=== PATIENT | male | born 1935 | race Caucasian/White ===

== ENCOUNTER 2017-01-26 09:54 | Inpatient (IN) | payer MEDICARE, OTHER ==
[~2017-01-26] VITALS: Ht 182.9 cm; Wt 84.1 kg
--- NOTE | ~2017-01-26 | CON ---
PATIENT'S NAME: SIRISHA GUZMAN [facility] AGE: 81 Y [address] ROOM: [address] [address] LOCATION: [facility] ADMIT DATE: 01/26/2017 Consultation DISCHARGE DATE: FAMILY PHYSICIAN: Nav Gonzalez PA-C ATTENDING PHYSICIAN: Rudi Quiles CHIEF COMPLAINT: Right-sided weakness secondary to CVA. HISTORY OF PRESENT ILLNESS: This is a 81-year-old male who is being admitted to [facility] for rehabilitation after undergoing a left carotid endarterectomy on 01/12/2017. 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 The patient is in rehabilitation right now to increase the strength. The patient denies any symptoms except that he has been having three loose stools yesterday and one loose stool today. Otherwise, he denies any other complaints. REVIEW OF SYSTEMS: As mentioned in history of present illness. All other systems were reviewed and they were negative except those mentioned in history of present illness. PAST MEDICAL HISTORY: 1. Obstructive sleep apnea, not on home CPAP due to noncompliance. 2. Hypertension. 3. Coronary artery disease, status post CABG in the past. 4. Diabetes, type 2. 5. Hyperlipidemia. ALLERGIES: CYMBALTA AND KEFLEX. HOME MEDICATIONS: 1. Lovenox 40 mg subcutaneous daily. 2. Augmentin 1 tablet twice a day. 3. Tylenol 650 mg p.o. every 4 hours p.r.n. for pain or fever. 4. Vitamin C 1000 mg p.o. daily. 5. Aspirin 81 mg p.o. daily. 6. Lipitor 40 mg p.o. daily. 7. Dulcolax 10 mg per rectum daily. 8. Plavix 75 mg p.o. daily. 9. Dantrolene 25 mg p.o. daily. 10. Colace 100 mg p.o. b.i.d. 11. Gemfibrozil 600 mg p.o. b.i.d. 12. Insulin NovoLog 7 units subcutaneous 4 times daily. 13. Insulin Lantus 20 units subcutaneous every evening at 6:00 p.m. PATIENT'S NAME: SIRISHA GUZMAN [facility] AGE: 81 Y [address] ROOM: [id number] [place], [place] [address] LOCATION: [facility] ADMIT DATE: 01/26/2017 Consultation DISCHARGE DATE: FAMILY PHYSICIAN: Nav Gonzalez PA-C ATTENDING PHYSICIAN: Rudi Quiles 14. Lisinopril 5 mg p.o. daily. 15. Milk of magnesia 30 mL p.o. daily p.r.n. for constipation. 16. Toprol-XL 50 mg p.o. daily. 17. Nitroglycerin 0.4 mg sublingual every 5 minutes p.r.n. for chest pain. 18. Fish oil 1000 mg p.o. daily. 19. Omeprazole 20 mg p.o. daily. 20. MiraLAX 17 g p.o. daily p.r.n. for constipation. 21. Terazosin 2 mg p.o. daily. 22. Tramadol 50 mg p.o. b.i.d. p.r.n. for pain. SOCIAL HISTORY: The patient was a former cigar smoker. He quit about 5 years ago. He used to smoke about 3 to 4 cigars per day for the last 50 years. He is a social alcohol drinker about 1 to 2 drinks per week. He denies any illegal drug use. FAMILY HISTORY: Father from complication from COPD. Mother from some cancer, but he does not remember which type. PAST SURGICAL HISTORY: 1. CABG. 2. Prior abdominal surgery, details are not clear. 3. Status post left carotid endarterectomy. PHYSICAL EXAMINATION: VITAL SIGNS: At the time of evaluation, temperature is 97.8, heart rate is 74, respirations are 14, blood pressure is 133/70, and saturation is 96% on room air. GENERAL APPEARANCE: Alert and oriented x3, in no acute distress. HEENT: Pupils equally round and reactive to light. Extraocular muscles intact. Anicteric sclerae. Nasal turbinates are normal bilaterally. Moist oral mucosa. NECK: No JVD. CARDIOVASCULAR: Regular rate and rhythm. Normal S1 and S2. No murmurs, no rubs, no gallops. RESPIRATORY: Clear to auscultation. No rales. No rhonchi. No wheezing. No crackles. ABDOMEN: Soft, nontender, nondistended, bowel sounds present, and no mass. EXTREMITIES: No edema in upper or lower extremities. NEUROLOGIC: Muscle weakness about 4/5 in the right lower extremity and about 3/5 in the right upper extremity. Sensations are decreased in bilateral lower extremities due to peripheral neuropathy from diabetes. Otherwise, unremarkable. PATIENT'S NAME: SIRISHA GUZMAN [facility] AGE: 81 Y [address] ROOM: [address] [address] LOCATION: [facility] ADMIT DATE: 01/26/2017 Consultation DISCHARGE DATE: FAMILY PHYSICIAN: Nav Gonzalez PA-C ATTENDING PHYSICIAN: Rudi Quiles SKIN: No ulcer, no rash, no cyanosis. IMAGING STUDIES: None in GIP. ASSESSMENT AND PLAN: 1. Regarding his obstructive sleep apnea: The patient refused CPAP due to discomfort. We will use oxygen nasal cannula if necessary at night during sleep to keep the saturation more than 94%. 2. Hypertension: Continue home medications, currently, under very good control. Currently, the patient is on Toprol-XL and lisinopril. 3. Regarding his coronary artery disease status post coronary artery bypass graft in the past. No active issue. Continue aspirin and Lipitor and Toprol-XL. 4. Regarding his diabetes, type 2: Continue current treatments with Levemir 20 units every evening and sliding scale with moderate a.c. and at bedtime. Titrate as needed. 5. Regarding his hyperlipidemia: Continue Lipitor. 6. Regarding his right-sided weakness secondary to stroke status post left carotid endarterectomy: Deferred to rehabilitation physician, Dr. Quiles. 7. Regarding his deep vein thrombosis prophylaxis: He is on Lovenox subcutaneous daily. Time spent in care on the day of consultation 35 minutes where 10 minutes were spent on chart review, and the remainder of the time was spent on interview and physical examination and in counseling. Counseling includes going over the plan of care and addressing all the questions and concerns that the patient had to his satisfaction. Further plan will depend on clinical course. PARIS TRAVIS MD CC/modl /[id number] d: 01/28/17 0001 t: 02/10/172025, CONSULTATION REPORT
--- NOTE | ~2017-01-26 | HP ---
PATIENT'S NAME: SIRISHA GUZMAN [facility] AGE: 81 Y [address] ROOM: [place] [address] LOCATION: [facility] ADMIT DATE: 01/26/2017 History & Physical DISCHARGE DATE: FAMILY PHYSICIAN: Nav Gonzalez PA-C ATTENDING PHYSICIAN: Rudi Quiles DATE OF SERVICE: HISTORY OF PRESENT ILLNESS: This 81-year-old gentleman is admitted for continuous medical treatment and intensive rehabilitation status post left carotid endarterectomy on 01/12/2017 with right-sided weakness secondary to embolic stroke with unstable gait, dependent with activities of daily living and self-care and at risk of falling. He is at the present time with right hemiplegia, hemiparesis, and status post left carotid stenting with left-sided neglect and at risk of falling. His code status is full. He was on admission with the following vitals. Alert and oriented x3, can speak, comprehend, express without difficulty, has no difficulty saturating at room air. Vitals were as follows: Blood pressure 126/51, temperature 98.1, pulse 73, respirations 16. He is 6 feet tall and weighs 82.4 kg. ALLERGIES: NO KNOWN ALLERGIES TO MEDICATIONS. MEDICATIONS: He is at the present time on the following medications, 1. Hytrin 2 mg capsules p.o. at bedtime. 2. Lopid 600 mg one tablet p.o. b.i.d. 3. Colace 100 mg p.o. b.i.d. 4. Lipitor 40 mg p.o. at bedtime. 5. Aspirin chewable 81 mg p.o. daily at bedtime. 6. Insulin detemir 20 units subcu at 1800 hours. 7. Insulin aspartate human moderate scale per protocol. 8. Acetaminophen or Tylenol 650 q.6 hours, do not exceed acetaminophen 4 g q.24 hours. 9. [place]-3 fatty acids/fish oil 1000 mg capsule p.o. daily. 10. Metoprolol 50 mg p.o. daily. 11. Lisinopril 5 mg p.o. daily. PATIENT'S NAME: SRIISHA GUZMAN [facility] AGE: 81 Y [address] ROOM: [place] [address] LOCATION: [facility] ADMIT DATE: 01/26/2017 History & Physical DISCHARGE DATE: FAMILY PHYSICIAN: Nav Gonzalez PA-C ATTENDING PHYSICIAN: Rudi Quiles 12. Dantrium 25 mg p.o. daily. 13. Plavix 75 mg p.o. daily. 14. Ascorbic acid 1000 mg two tablets p.o. daily. 15. Lovenox 40 mg subcu daily. 16. Protonix 20 mg p.o. daily. 17. Glucagon 1 mg subcu p.r.n. 18. Dextrose 50%, 25 mL as needed IV. 19. Glucose 16 g p.o. as needed for hypoglycemia. 20. MiraLAX 17 g p.o. daily as needed. 21. Nitroglycerin 0.4 mg sublingual p.r.n. 22. MOM 30 mL p.o. as needed. 23. Dulcolax suppository 10 mg rectally p.r.n. 24. Augmentin 875 mg b.i.d was started on 01/26/2017. PAST MEDICAL HISTORY: Past history of significance as follows, 1. History of angioplasty for the left lower extremity on 01/12. 2. Sleep apnea. 3. Hypertension. 4. Status post CABG x3. 5. Chronic kidney disease, grade 3. 6. Hernia repair. 7. Diabetes type 2. 8. Dyslipidemia. 9. Anemia of chronic disease. 10. Status post cardiac stenting. 11. Arthritis. RECOMMENDATIONS AND PLAN: 1. At the present time, we will put on intensive PT, OT, and speech 3 hours per day, 15 hours per week for the coming 2 to 3 weeks aiming to discharge on modified independent. He will be on cardiac prudent and ADA diet 1800 calories. We will send for UA, CBC, and CMS, and prealbumin plus hemoglobin A1c and will keep on before meal and at bedtime Accu- Cheks. 2. We will have him be followed by hospitalist on a regular basis and upon discharge, he will be discharged to home with recommendations. All the above was explained to him in detail. He verbalized understanding and agreement with plan of care. RUDI QUILES MD PATIENT'S NAME: SRIISHA GUZMAN [facility] AGE: 81 Y [address] ROOM: [place] [address] LOCATION: [facility] ADMIT DATE: 01/26/2017 History & Physical DISCHARGE DATE: FAMILY PHYSICIAN: Nav Gonzalez PA-C ATTENDING PHYSICIAN: Rudi Quiles/maceyl /[id number] D: [id number] T: [id number] HISTORY & PHYSICAL
--- NOTE | ~2017-01-26 | DS ---
PATIENT'S NAME: SIRISHA GUZMAN [facility] AGE: 81 Y [address] ROOM: [address] [place], [place] [address] LOCATION: [facility] ADMIT DATE: 01/26/2017 Discharge Summary DISCHARGE DATE: FAMILY PHYSICIAN: Nav Gonzalez PA-C ATTENDING PHYSICIAN: Tonia Quiles HOSPITAL COURSE: This 81-year-old gentleman was admitted to rehab unit at [facility] on 01/26/2017, is discharged to home on 02/09/2017. He was admitted with unstable gait. Dependent activities of daily and self-care. Status post carotid artery stenting and embolized stroke leading to left side carotid artery stent, leading to right-sided hemiparesis with unstable gait, dependent activity of daily and self-care and some difficulty with his speech and memory. He is at the present time doing well, alert, and oriented x3. VITAL SIGNS: Blood pressure 146/66, temperature 97.7, pulse 67, and respirations 16. His Accu-Chek today at 20:36 p.m. was 186 ranging between 225 to 132. He has no pain, able to ambulate 400 feet plus with single-point cane and standby assistance. He is not to drive and/or operate any mechanical or electrical device until he is re-evaluated. He will continue on outpatient basis 2 to 3 times PT, OT, and Speech per week and for 4 weeks. I will re-evaluate. He should follow up with his family physician as soon as possible. I will follow on him in 4 weeks. He follows with his dining room maid as the dining room maid sees fit. MEDICATIONS: He is on the following medications: 1. Vitamin C 1000 mg p.o. daily. 2. Aspirin children chewable 81 mg p.o. daily. 3. Lipitor 40 mg at bedtime. 4. Plavix 75 mg p.o. daily. 5. Dantrium 25 mg p.o. daily. 6. Colace 100 mg p.o. b.i.d. PATIENT'S NAME: SIRISHA GUZMAN [facility] AGE: 81 Y [address] ROOM: [address] [place], [place] [address] LOCATION: [facility] ADMIT DATE: 01/26/2017 Discharge Summary DISCHARGE DATE: FAMILY PHYSICIAN: Nav Gonzalez PA-C ATTENDING PHYSICIAN: Tonia Quiles 7. Lipitor 600 mg p.o. twice daily. 8. Levemir 22 units at 1800 hours. 9. Lisinopril 5 mg p.o. daily. 10. Toprol-XL 50 mg p.o. daily. 11. Fish oil 1000 mg p.o. daily. 12. Protonix 20 mg p.o. daily. 13. Florastor 250 p.o. twice daily. 14. Hytrin 2 mg p.o. at bedtime. 15. Tylenol 650 q.6 hours, do not exceed acetaminophen 4 g every 24 hours, give 40 of them. 16. Dulcolax suppository 10 mg rectally p.r.n., give 10 of them. 17. Garlic one capsule daily for 30 days. 18. MOM 10 mL p.r.n. as needed. 19. Nitrostat 0.4 mg sublingually p.r.n., given for 30 days. 20. Ultram 50 mg p.o. twice daily, give 40 of them. FINAL DIAGNOSES: 1. Unstable gait. 2. Dependent activities of daily and self-care. 3. Left carotid endarterectomy, 01/12/2017, leading to embolic stroke, right- side weakness. 4. With unstable gait, dependent activities of daily living, and some difficulty with speech. 5. Diabetes, type 2. 6. Dyslipidemia. 7. Hypertension. 8. Status post angioplasty, left lower extremity, on 01/13/2016. 9. Status post CABG x3, status post stenting coronary artery disease. 10. Sleep apnea per history. 11. Chronic stage 3 kidney disease. 12. Status post hernia repair. 13. Osteoarthritis. 14. Benign prostatic hypertrophy. The patient is not to drive and/or operate any mechanical. His medication is given for 30 days. Any renewal of medication or adding or discontinuing any medication is through his family physician please. All the above was explained to him in detail. He verbalized understanding and agreement with plan of care. TONIA QUILES MD WMS/modl PATIENT'S NAME: SIRISHA GUZMAN [facility] AGE: 81 Y [address] ROOM: [address] [address] LOCATION: [facility] ADMIT DATE: 01/26/2017 Discharge Summary DISCHARGE DATE: FAMILY PHYSICIAN: Nva Gonzalez PA-C ATTENDING PHYSICIAN: Tonia Quiles /[id number] d: 02/08/17 1215 t: 02/09/17 0653, DISCHARGE SUMMARY
--- NOTE | ~2017-01-26 | CON ---
PATIENT'S NAME: SIRISHA GUZMAN [facility] AGE: 81 Y [address] ROOM: [address] [place], [place] [address] LOCATION: [facility] ADMIT DATE: 01/26/2017 Consultation DISCHARGE DATE: 02/09/2017 FAMILY PHYSICIAN: Nav Gonzalez PA-C ATTENDING PHYSICIAN: Rudi Prince DATE OF CONSULTATION: 02/06/2017 TEAM MEMBERS REPORTING: Include Dr. Prince; Mariia Hendricks. bottling room worker; Yessy Madrid RN; Danielle Vidal, PT; Ellie Mathews, PT; Paula Hicks, OT; Francoise Franklin, Speech Therapy; Saba Beauchamp, therapeutic rec. CURRENT STATUS: Abraham Joy is a 81-year-old man, admitted to our inpatient rehab unit following a CVA. The patient is on a consistent carbohydrate diet. Prealbumin is 25, not currently at nutritional risk. He can transfer sit to supine and supine to sit at mod I, sit to stand and stand to sit, mod I and bed to chair and chair to bed, mod I. He can walk 150 feet, 300 feet using a front-wheeled walker at mod I. If he walks with a single-point cane 150 feet, he is also mod I. He can climb 12 stairs at contact guard assistance using one railing. has to come in for training. He has met 3/9 long-term PT goals. The patient can dress his upper and lower body at standby; grooming, mod I, bathing standby; shower transfer, standby; and toileting, mod I. He has met 4/13 long-term OT goals and 4/4 short-term OT goals. Comprehension is at mod I; language and expression, mod I; memory standby to mod I and problem solving, standby. He can complete car transfers at contact guard assistance. DISCHARGE PLAN: The patient is receiving 3 hours of PT, OT, and speech Sunday through Sunday. The patient has daily rehab, nursing, and physiatry involvement as well as therapeutic recreational services. The patient has shown functional improvement and is progressing. Please see his plan of care for specific goals. Plan is for the patient to discharge on Thursday, February 09, 2017. The patient plans to return to home with his . MARIIA HENDRICKS FOR RUDI PRINCE MD TD/modl /[id number] d: 02/11/17 1817 t: 02/23/17 1139, CONSULTATION REPORT
--- NOTE | ~2017-01-26 | CON ---
PATIENT'S NAME: SIRISHA GUZMAN [facility] AGE: 81 Y [address] ROOM: [address] [place] [address] LOCATION: [facility] ADMIT DATE: 01/26/2017 Consultation DISCHARGE DATE: 02/09/2017 FAMILY PHYSICIAN: Nav Gonzalez PA-C ATTENDING PHYSICIAN: Rudi Prince DATE OF CONSULTATION: 01/30/2017 TEAM MEMBERS REPORTING: Include Dr. Prince; Mariia Hendricks, social media manager; Yessy Madrid, RN; Ellie Mathews, PT; Danielle Vidal, PT; Paula Hicks, OT; Francoise Franklin, Speech Therapy; Saba Beauchamp, Therapeutic Rec; and Sister Monique Rayo, Pastoral Care. CURRENT STATUS: Marciano Joy is a 81-year-old man, admitted to our inpatient rehab unit from [facility] following a CVA. The patient has a history of obstructive sleep apnea; hypertension; coronary artery disease, status post CABG in the past; diabetes type 2; and hyperlipidemia. The patient is continent of bowel and bladder. He can transfer sit to supine and supine to sit at standby; sit to stand, stand to sit, bed to chair, and chair to bed, contact guard assistance. He can walk 150 feet with a front-wheeled walker at contact guard assistance to minimal assistance. He can climb stairs going minimal assistance up, contact guard assistance coming down using two rails. His goals have been set for mod I. The patient can dress his upper body at standby; lower body, contact guard assistance; grooming, contact guard assistance; bathing, minimal assistance; toilet transfers, minimal assistance; toileting, contact guard assistance; shower transfers, contact guard assistance; and feeding, standby. The patient is exhibiting some memory issues. 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 His goals for OT have been set for standby to mod I. Comprehension is independent. Language and expression, mod I. Delay in responses. Memory and problem solving, minimal assistance, as he does lose his train of thought. No pharmacy or pastoral care concerns. DISCHARGE PLAN: The patient is receiving 3 hours of PT, OT, and speech Sunday through Sunday. The patient has daily rehab, nursing, and physiatry involvement as well as therapeutic recreational services. The patient has shown functional improvement and is progressing. Please see his plan of care for specific goals. Plan is for patient to discharge in approximately 2 to 3 weeks. Plan is for patient to return to home with his . PATIENT'S NAME: SIRISHA GUZMAN [facility] AGE: 81 Y [address] ROOM: [place] [address] LOCATION: [facility] ADMIT DATE: 01/26/2017 Consultation DISCHARGE DATE: 02/09/2017 FAMILY PHYSICIAN: Nav Gonzalez PA-C ATTENDING PHYSICIAN: Rudi Prince MARIIA HENDRICKS FOR RUDI PRINCE MD TD/modl /[id number] d: 02/11/17 1753 t: 02/23/17 1136, CONSULTATION REPORT
[2017-01-26] MEDS ORDERED: LOVENOX 4040 MG/0.4 SUB-Q (12:52)
[2017-01-26] MEDS ORDERED: AUGMENTIN600 MG/5 M (12:53)
[2017-01-26] MEDS ORDERED: AUGMENTIN250 MG PO (12:54)
[2017-01-26] MEDS ORDERED: TYLENOL325 MG PO (12:54)
[2017-01-26] MEDS ORDERED: ASPIRIN LO-DOSE81 MG PO (12:55)
[2017-01-26] MEDS ORDERED: VITAMIN C500 MG PO (12:55)
[2017-01-26] MEDS ORDERED: DULCOLAX10 MG R (12:56)
[2017-01-26] MEDS ORDERED: LIPITOR40 MG PO (12:56)
[2017-01-26] MEDS ORDERED: PLAVIX75 MG PO (12:56)
[2017-01-26] MEDS ORDERED: COLACE100 MG PO (12:57)
[2017-01-26] MEDS ORDERED: DANTRIUM25 MG PO (12:57)
[2017-01-26] MEDS ORDERED: LOPID600 MG PO (12:58)
[2017-01-26] MEDS ORDERED: GARLIC1 EAC1 (12:58)
[2017-01-26] MEDS ORDERED: NOVOLOG100 UNIT/M SUB-Q (12:59)
[2017-01-26] MEDS ORDERED: MILK OF MA400 MG/5 M PO (13:00)
[2017-01-26] MEDS ORDERED: PRINIVIL (ZESTRI5 MG PO (13:00)
[2017-01-26] MEDS ORDERED: LANTUS (IN100 UNIT/M SUB-Q (13:00)
[2017-01-26] MEDS ORDERED: TOPROL XL 5050 MG PO (13:01)
[2017-01-26] MEDS ORDERED: NITROSTAT0.4 MG SL (13:01)
[2017-01-26] MEDS ORDERED: FISH OIL 1,0001 EAC1 PO (13:02)
[2017-01-26] MEDS ORDERED: PRILOSEC20 MG PO (13:02)
[2017-01-26] MEDS ORDERED: ULTRAM50 MG PO (13:03)
[2017-01-26] MEDS ORDERED: HYTRIN **IA 9/2 MG PO (13:03)
[2017-01-26] MEDS ORDERED: [UNRECOGNIZED DRUG - REMARK] (13:03)
[2017-01-26] MEDS ORDERED: MIRALAX17 GM PO (13:03)
--- NOTE | 2017-01-26 13:06 | NUR ---
PATIENT ADMITTED TO [facility] FROM [facility]. HAD A STENT ON 01/12 AND THEN HAD A STROKE. WAS THEN ADMITTED TO [facility] AND THEN TRANSFERRED HERE. ALERT AND ORIENTED X3. UP 1-2 ASSIST, WALKER, GAIT BELT. ALERT AND ORIENTED X3. LEFT EAR AND NECK PAIN. SLIGHT RIGHT SIDED FACIAL DROOP NOTED AT MOUTH. RIGHT HAND AND LEG WEAKER THAN LEFT SLIGHTLY BUT HAS STRONG COURT MESSENGER TO BOTH SIDES. 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 ANSWERS QUESTIONS APPROPRIATLEY. SWALLOWS WITHOUT ISSUE. VITALS STABLE ON ROOM AIR. HAS BRUISING TO HANDS AND ARMS. SLIGHTLY PINK BACKSIDE BUT HAD BEEN IN THE CAR AND WHEELCHAIR FOR QUITE AWHILE. ADA DIET, ACHS ACCUCHECK. HISTORY OF STENTS X2, DMII, HTN, HYPERLIPIDEMIA, PVD, GERD. IS ON ANTICOAGULATION. AT BEDSIDE, HELPFUL.
--- NOTE | 2017-01-27 05:30 | NUR ---
Significant Event:Transfers with one assist/gait belt and walker with hands on, is unsteady with rt leg weaker as well as rt hand. Hx diabetic peripheral neuropathy to feet/lower legs. Accucheck at hs 169, given 2 units per sliding scale. Refused hs snack. No UA obtained, is on oral atb Augmentin. Alert/oriented. Has denied pain, occas will report pain to left ear/neck. Is on scheduled tylenol and had a dose at 0500. Dark bruising to bilat hands/arms, skin intact, small amt bruising across abdomen. Pt started having loose stools yest afternoon, had one more after supper meal, and one during the night that was soft/semiformed. Order for stool sample to r/o c-diff. Held po colace dose last night. No swallowing difficulty. Slight facial droop. Follow up:Need stool for c-diff; Hospitalist to see today regarding admission.
[2017-01-27 05:44] LABS: BASOPHIL # 0.1 K/uL (0.0-0.2); EOSINOPHIL # 0.6 K/uL (0.0-0.5); EOSINOPHIL % 8.1 %; HEMATOCRIT 30.6 % (37.0-53.0); HEMOGLOBIN 10.2 g/dL (11.0-16.0); IMMATURE GRANULOCYTE # 0.1 K/uL (0.0-0.3); IMMATURE GRANULOCYTE % 0.9 %; LYMPHOCYTE # 2.2 K/uL (0.8-4.0); LYMPHOCYTE % 28.4 %; MCH 31.3 pg (27.0-34.0); MCHC 33.3 gm/dL (32.0-36.5); MCV 93.9 fl (83.0-98.0); MONOCYTE # 0.8 K/uL (0.0-1.0); MONOCYTE % 10.1 %; NEUTROPHIL % 51.5 %; NRBC % 0 /100WBC (0-0.00); PLATELET COUNT 279 K/uL (150-450); RBC 3.26 M/uL (3.50-5.50); RDW-CV 13.3 % (11.9-14.6); WBC 7.8 K/uL (4.0-11.0)
[2017-01-27 06:06] LABS: ALBUMIN 3.1 gm/dL (3.5-5.0); ANION GAP 12.9 (10.0-19.0); CALCIUM 8.6 mg/dL (8.5-10.5); CREATININE 1.1 mg/dL (0.6-1.3); POTASSIUM 3.9 mMol/L (3.7-5.1); TOTAL BILIRUBIN 0.6 mg/dL (0.0-1.5); TOTAL PROTEIN 6.6 g/dL (6.0-8.4)
--- NOTE | 2017-01-27 15:44 | NUR ---
Significant Event:PATIENT ALERT AND ORIENTED THIS S HIFT. VSS. TRANSFERS WITH 1 ASSIST, GAIT BELT AND WALKER. HAS DENIED PAIN TODAY. RESTS IN RECLINER THROUGHOUT THE DAY. DID HAVE A SHOWER THIS AM WITH THERAPY. ACCU CHECK AT BREAKFAST WAS 120 AND NO SLIDING SCALE GIVEN. LUNCH WAS 262 AND RECEIVED 6 UNITS OF SLIDING SCALE. NO OTHER COMPLAINTS. Follow up:
--- NOTE | 2017-01-28 05:21 | NUR ---
Significant Event:Up with one assist/walker, needs verbal cues at times to pick right foot up otherwise does 'stumble' with toes. Right leg weaker, slightly weaker with rt handgrasp. Slight right facial droop. Has denied pain with exception of sharp, brief pain to left side of head around 0300 and then was gone. Pupils equal and react to light. Has scheduled tylenol. Hs accucheck 204, received 4 units per sliding scale. Mushy liquid brown green stool sent to lab--negative for c-diff. Dr Gale came to see pt for admission purposes/assessment last evening, given update on pt and his condition. Oral Colace held last evening r/t frequency of stools. Has had 3 small bm's x 3, oral intake 540 ml, voids x 3. Pt up to br around 0100 with change in cognition--slower with tracking/responses, confused with some answers r/t date and year, town and name of [facility], and word finding--was thinking of downloading/charging of something. Then discovered he was referring to his cell phone and ipad which he stated his took home to charge and will bring them back today. Pt seemed a bit more drowsy than usual. Did reassess pt again in 2 hrs and did arouse to verbal stimuli, but answers to month and year, town/name of [facility] he wasn't sure about. Vitals remain unchanged. No changes to sensation or movement with limbs. Notified Dr Gale at 0320 but he wasn't concerned and labeled it more as delirium. Did another quick reassessment at 0500 when scheduled tylenol was due--awakens readily, took meds without difficulty, responded to questions of location/date without difficulty, CAM was negative. No changes with pts' ability to move extremities or his sensation. Follow up: Monitor stools and cognition. AC/HS accuchecks with sliding scale.
--- NOTE | 2017-01-28 14:46 | NUR ---
Significant Event:PATIENT ALERT AND ORIENTED THIS SHIFT. IS FORGETFUL AT TIMES. HAS FELT BETTER TODAY AFTER HAVING A ROUGH NIGHT LAST NIGHT. DID TAKE A GOOD NAP THIS AM AFTER BREAKFAST. AND FRIENDS VISITING TODAY. REMEMBERS HAVING SOME CONFUSION DURING THE NIGHT. DR. PRINCE AWARE AND WE ARE TO MONITOR FOR ANY CHANGES. HAS DENIED PAIN TODAY. RESTS IN RECLINER AND IN BED AT DIFFERENT TIMES. NO OTHER COMPLAINTS. Follow up:
--- NOTE | 2017-01-29 03:52 | NUR ---
Significant Event:Up with one assist/walker, does catch right toes/foot on floor at times. Gait belt when up. Denies any pain. Is aware of his surroundings, knows date and month, [facility] and town he is currently at, as well as the [place] President. No altered cognitive status as what was observed on Sat night. Hs accucheck 305, gave 9 u sliding scale--refused hs snack. Pneumatics on for short time, then refused. Pt has numbness/tingling due to diabetic neuropathy and this heightened his sensitivity to his legs. Has had small mushy/loose stools of green brown in color, C-diff done on Sat was negative. 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 At times does lean slightly to the right when up/tired. Follow up:Monitor stools. Accuchecks ac/hs. Monitor for cognitive changes.
--- NOTE | 2017-01-29 12:45 | NUR ---
Significant Event: PATIENT UP 1 ASSIST, WALKER, GAIT BELT. ALERT AND ORIENTED X3. CALLS APPROPRIATLEY. CONTINENT OF BOWEL AND BLADDER. ACHS ACCUCHECKS, RECEIVES SLIDING SCALE, LONG ACTING, AND ORALS. SCHEDULED TYLENOL. VITALS STABLE ON ROOM AIR. FEEDS SELF WELL, MEDS WHOLE IN WATER. GENERALIZED BRUISING. NEUROPATHY TO LEGS. Follow up:
--- NOTE | 2017-01-29 23:41 | NUR ---
Significant Event: Patient alert and oriented x3. Up with one assist and walker to bathroom. Vitals stable on room air. Slight right sided weakness and right facial droop present. Neuropathy to bilateral lower legs & feet and so refused pneumatics as he stated they made it painful. Recieved scheduled tylenol. Had 2 small soft formed bowel movements tonight. Pleasant/cooperative with cares Follow up:
--- NOTE | 2017-01-30 03:57 | NUR ---
*RESUMED CARE FROM [id number]* Patient up to bathroom X1 with 1PA. Smear BM in brief. Patient voiced issues with sleeping. Lavender aromatherapy in room, patient seemed to rest better.
--- NOTE | 2017-01-30 08:50 | NUR ---
D: Therapeutic Recreation Initial Assessment on the 01/30/17. I: Patient seen for 2 units at [facility] to begin initial evaluation. Pt has recent CVA with R) side affected. R: Patient's current living situation and status: house in town Home entrance steps: 3 with railing in front Living with: Spouses name: Francoise # of children: 6 (2 close by) Driving: yes, spouse does drive (SUV/pickup) Ambulating: I Equipment: N/A Hand Dominance: Right Ham Pumper strength: R) side affected Eye sight: glasses Reading ability: good Hearing: no problem Speech: clear Cognition: alert Comprehension: fair Following directions: yes Initiating: yes Eye contact: good Affect: bright COMMUNITY INVOLVEMENT: mandaen 1-2x mother, out to eat, grocery shopping, junk shruti, visit children, travel LEISURE INTERESTS: watch TR, read (newspaper), dog - david, garden, computer (Internet, [employer]!), work in shop, fishing Patient is referred by medical staff for treatment and evaluation in the following areas: Community Skills, Functional Leisure Skills, Participation, Leisure Education/Behaviors, Family Education, Cognitive. Information obtained: Interview, Chart Review, Observation, other. BARRIERS TO LEISURE: Financial, Physical Patient determined to be: APPROPRIATE FOR THERAPEUTIC RECREATION ASSESSMENT. TREATMENT WILL INCLUDE: Community living skills training Functional leisure development Physical skills development Cognitive skills development Leisure education Emotional/behavioral adaptation Family education Community resources/packet TARGET EQUIPMENT/INFORMATION: Parking Permit HAS IN PLACE Community Resources Energy conservation in community setting Van/Service/Taxi Scrip Adapted Leisure Equipment Stress management/Relaxation techniques Functional car transfers Leisure Education Behaviors: Attitude, Awareness, Participation. Patient functional skills level and potential: Good, pt demonstrates fair mobility with concerns for coping with lifestyle changes. Patient oriented ot TR services on Rehab unit. Pt/family provided input into goals setting and plan of care. Pt's goal is to return to prior lifestyle and be independent with mobility. P: Target date set with personal goals established. Will continue with POC focusing on pt/family training and education. For additional information please see Nursing Data Base, PT, OT, CM, ST, initial assessments to [facility] and Interdisciplinary Assessments.
--- NOTE | 2017-01-30 09:50 | NUR ---
Significant Event: Patient alert and oriented. Up with 1 assist. Right sided weakness, slight right facial droop. 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 Accuchecks with s/s insulin. Follow up:
--- NOTE | 2017-01-30 11:03 | NUR ---
A-SCREENED D/T LOS ADMITTED FROM ORD SB; 01/12 HAD A STENT AND THEN HAD A STROKE. R)SIDED WEAKNESS AND FACIAL DROOP. NO DIFF. SWALLOWING HT: 72 IN. CBW (STANDING SCALE): 84.1 KG; ADMIT WT (STANDING SCALE): 82.4 KG. BMI: 25.1 01/27 LABS REVIEWED: ALB 3.1, PREALB 22.0 MEDS: COLACE, LEVEMIR, NOVOLOG (MOD SS), ZESTRIL, VIT C, PROTONIX, AUGMENTIN DIET RX: CONSISTENT CARB. PO INTAKE 75-100% EST NUTR NEEDS: [id number] KCALS (25-30 KCALS/KG) 84-93 GM PROTEIN (1.0-1.1 GM/KG) 1 ML FLUID/KCAL D-NOT AT NUTRITION RISK; NO NUTRITION DX IDENTIFIED I-CONTINUE W/CURRENT DIET RX M/E-WILL ASSIST NEEDED
--- NOTE | 2017-01-31 02:54 | NUR ---
Significant Event: up to bathroom with walker and 1 assist. unsteady gait. has had 2 bm's this shift. buttocks reddened. aloe vesta applied. reports neuropathy to bilateral lower extremities. accucheck at hs was 180; had 2 units of novolog. denies pain. r) side weakness. Follow up:
--- NOTE | 2017-01-31 11:35 | NUR ---
D: TR progress note for 01/31/17. I: Pt seen for 2 units at 1100 in group session for education on pain/stress management, coping strategies, leisure education and functional transfers. R: Pt seen for functional skills building working on stress management, relaxation and education on signs and symptoms of depression to increase awareness of coping strategies. Pt actively participated in session, completed functional social communication skills independently which involved personal introduction of self and past relaxation activity. Education completed by verbal discussion on the signs and symptoms that physical stress/pain can cause the body and how it affects healing along with identification of coping strategies, relaxation techniques, and options available. Pt transferred sit > stand from SBA, pivoted to recliner with walker CGA and transferred into CGA with cues for reaching back. P: Will continue to see to address goals and plan of care.
--- NOTE | 2017-01-31 16:28 | NUR ---
Significant Event: Patient alert and oriented. Up with 1 assist. Accuchecks with s/s insulin. Rigt sided weakness. Follow up:
--- NOTE | 2017-02-01 04:27 | NUR ---
Significant Event: Patient is alert and oriented, VSS. Up one assist with GB/Walker. Right side weakness but has good hand grasp. C/O of Neuropathy to his lower extremities he has had for years. Takes meds whole with water. Has scheduled Tylenol for pain. Follow up:
--- NOTE | 2017-02-01 15:25 | NUR ---
Significant Event:Pt alert and orientatedx 3. Transfers with 1 assist/walker and gaitbelt. Right side weakness, slt right sided facial droop. Complains of occasional left ear and neck pain. Peripheral neuropathy to bilateraly feet. Bruising to bilateral hands, and arms, skin intact. ADA diet/accuchecks. Pt has been pleasant and cooperative with plan of care. Follow up:pain control, Accuchecks. meds whole with water.
--- NOTE | 2017-02-02 04:37 | NUR ---
Significant Event: Patient is alert and oriented, VSS. Up one assist with GB/walker. Right side affected but strength is good to his extremities. C/O of peripheral neuropathy and does not like his feet touch w/o warning. Eccomotic areas to his Hands arms and abdomen. Some scabbed areas to his head that do bleed easily at times. Need to report to MD if he has and excessive bleeding. Monitor for bleeding in his urine and stools. Accu checks are AC&HS Last night he was 299, 6 units of novalog were given. Follow up:
--- NOTE | 2017-02-02 10:14 | NUR ---
Significant Event:Pt alert and orientated x 3. Therapy showered and dressed pt this am. Expressess needs well. Right side weakness unchanged, slt right sided facial droop. Has occasional left ear and neck pain, and peripheral neuropathy to bilateral feet. Bruising to bilateral hands and arms unchanged. Pt has been pleasant and cooperative with plan of care. Follow up:pain control Accuchecks, meds whole with water.
--- NOTE | 2017-02-02 11:17 | NUR ---
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 I: Input from: patient, , Dr. Quiles, Mariia Hendricks LCSW R: Reason for admission: CVA with right sided weakness. Admission Date to [facility]: 01/26/17 Admission Date to Hospital: see [facility] note. Prior level of functioning: prior to stroke; jayne was independent with adl's and household. Prior living situation: one story house with basement. Financial resources/expectations: patient has Medicare and [employer]. Resources used: none. Resources available: HHC, outpatient therapy, SNF, [facility], [facility], DME Family support available: Understands nature of health condition: yes Recognizes impact of health condition on lifestyle: yes Vocational/Educational: retired Behavior/Emotional needs: cues for safety. Monitor for signs and symptoms of depression and anxiety. Legal concerns: none. Discharge goal: home with . Assessment: Brayden is a 81 year old man from [place], [place] admitted after a stroke. He has good family support. Team conference was held and plan is for patient to d/c in approx. 2-3 weeks. Will follow and assist as needed. Orientation to the program and CM services completed with Brayden. Initial plan of care and estimated length of stay discussed, disclosure statement reviewed including patient assessment rights. P: Target date and individual goals established. Please see POC for details. For additional information please see Nursing Data Base, PT, OT, TR, ST, Initial assessments to [facility].
--- NOTE | 2017-02-02 12:21 | NUR ---
D: TR progress note for 02/02/17. I: Pt seen for 2 units at 1004 for community integration skills building, functional transfers, and safety awareness. R: Pt seen for functional skills building working on family training, mobility, safety, functional transfers and community skills in anticipation for discharge back into community with family. Pt transferred sit > stand from WC SBA > CGA, ambulated with walker to/from vehicle CGA and transferred in/out of vehicle CGA with verbal cue for hand placement and for reaching back to control descent. Pt was SBA for BLE management and positioning of self with seat surface adapted using trash bag to ease task. Pt tolerated ride with no C/o pain, discomfort or nausea verbalizing enjoyment of session. P: Will continue to see to address goals and plan of care.
--- NOTE | 2017-02-03 02:59 | NUR ---
Significant Event: Patient is alert an oriented, VSS. Up one assist with GB/Walker. Gait slightly unsteady. Right side effected but has good strength, slight right side faccial droop. Has trouble with peripheral neuropathy he has had for along time. Does not like his feet touched, need to ask first. Bruising to bilateral hands arms and abdomen. Takes plavix and lovenox. Some bleeding to scabbed areas to his scalp. Excess bruising and bleeding has been relayed to MD we are to monitor for blood in urine stool and excessive bleeding. Accu checks AC&HS last night was 247. SSI 4 units get Leverier at supper time. Pleasant and cooperative with cares calls appropriatly. Follow up:
--- NOTE | 2017-02-03 13:25 | NUR ---
Significant Event: PATIENT ALERT AND ORIENTED X3. UP 1 ASSIST, WALKER, GAIT BELT. CALLS APPROPRIATELY. COOPERATIVE WITH CARES. FEEDS SELF WELL, MEDS WHOLE WITH WATER. RECEIVES SCHEDULED TYLENOL. SLIGHTLY WEAKER TO RIGHT SIDE. NEUROPATHY TO FEET. CONTINENT OF BOWEL AND BLADDER, BM TODAY. ACHS ACCUCHECKS, WAS 123 AND 223 TODAY. VITALS STABLE ON ROOM AIR. UP IN HALLS TO WALK TODAY. Follow up:
--- NOTE | 2017-02-04 02:52 | NUR ---
Significant Event: a/o x3. takes meds whole with water. ambluated in joshua with walker and 1 assist.slightly unsteady gait. up to bathroom with 1 assist. had bm this shift. accucheck 183, recieved 2 units novolog. has hard lump to lt upper arm. patient reports from a previous insulin injection. right side weaker than left. Follow up:
--- NOTE | 2017-02-04 15:55 | NUR ---
Significant Event: Alert and oriented X 3. 1 assist gait belt and walker. Right side slightly weaker then left. Neuropathy in feet. Medication taken whole with water. ACHS accu check 116, 293. Patient has hard lump on lower part of upper arm hurts when touched. Patient refused scheduled tylenol at 1200 as he stated he has no pain. Patient also requested that the 2200 tylenol be held as he is unable to get back to sleep after being awaken. He stated he will call if he needs the Tylenol. Pleasant and cooperative with all cares. Follow up:
--- NOTE | 2017-02-05 02:55 | NUR ---
Significant Event: a/o x3. takes meds whole with water. accucheck at hs was 243, had 4 units novolog. left upper arm lump smaller than previous night. right side slightly weaker than left. up to bathroom with walker and 1 assist. refused 2300 dose of tylenol, reports has no pain and does not need it. Follow up:
[2017-02-05 06:31] LABS: ALBUMIN 3.2 gm/dL (3.5-5.0); CALCIUM 8.6 mg/dL (8.5-10.5); CREATININE 1.2 mg/dL (0.6-1.3); TOTAL BILIRUBIN 0.5 mg/dL (0.0-1.5); TOTAL PROTEIN 6.9 g/dL (6.0-8.4)
--- NOTE | 2017-02-05 19:24 | NUR ---
Significant Event:PATIENT ALERT AND ORIENTED THIS SHIFT. VSS. TRANSFERS WITH 1 ASSIST, GAIT BELT AND WALKER IN THE HALLS. WAS MADE MOD I IN HIS ROOM TODAY BY THERAPY. INSTRUCTED TO CALL FOR HELP IF HE FELT WEAK AT ANY TIME AND THAT WE WOULD STILL HAVE ALARMS ON AT NIGHT. ACCU CHECKS HAVE BEEN ELEVATED TODAY. GIVEN 4 UNITS OF SLIDING SCALE INSULIN AT LUNCH AND SUPPER. HAS A KNOT ON HIS LEFT UPPER POSTERIOR ARM AND BRUISE FROM A PREVIOUS INJECTION. REFUSED A HOT PACK FOR IT. REPORTS IT IS TENDER. HAS DENIED OTHER PAIN AND TYLENOL CHANGED TO PRN PER REQUEST. NO OTHER COMPLAINTS. Follow up:
--- NOTE | 2017-02-06 02:37 | NUR ---
Significant Event:A/O. Mod I in room with walker. Bed alarm on at night, will call for assistance. ACHS accuchecks. HS glucose 161=2 units sliding scale Novolog. Back of L) arm bruised with knot at top. Mildly painful. Continue to monitor. Abdomen mass of bruises in various stages of healing. Bleeds easily. Insulin injections to be given in thighs. Denies pain. VSS on room air. Afebrile. Call light in reach. Follow up:Therapy. Mod I. Wants to go home Sunday.
--- NOTE | 2017-02-06 09:03 | NUR ---
PT REMAINS AT NO RISK W/ 75-100% INTAKE, STABLE WT, AND PRE-ALB 25.0. WILL ASSIST NEEDED.
--- NOTE | 2017-02-06 12:15 | NUR ---
D: TR progress note for on the 02/06/17. I: Pt seen for 2 units at 1004 for leisure education, scanning, coping strategies and functional transfers. R: Pt seen for functional skills building working on functional transfers, motor skills, cognitive visual/observation skills activity for scanning coping strategies to promote recovery in all areas. Pt transferred sit > stand from recliner CGA, ambulated with walker 3 feet to CGA, and transferred into SBA. Pt taken outdoors for session, transferred sit > stand from CGA, ambulated to/from park bench 14 feet with walker CGA and transferred on/off low adapted bench CGA with cues for hand placement and walker management. Pt given "visual search" puzzle to identify difference. Pt able to complete with cues /15 with good attention to task and visual scanning. Education continued on use of leisure to promote recovery and for coping strategies with increase free time. P: Will continue to see to address goals and plan of care.
--- NOTE | 2017-02-06 14:51 | NUR ---
Significant Event: Patient alert and oriented. Up ad james in room. Still needs supervision at night with transfers. Having some bleeding from injection sites to abdomen. Refused Lovenox today. Accuchecks with s/s insulin. Follow up:
--- NOTE | 2017-02-07 01:28 | NUR ---
Significant Event:A/O, forgetful. Mod I in room during day, supervision at night.(alarm on and calls for assistance). ACHS accuchecks, 206 glucose at HS, 4 units Novolog per sliding scale.Insulin injections are administered in thighs. Refused Lovenox yesterday. Abdomen is a mass of bruises in various stages of healing. Knot to back of Left arm decreasing,and bruising starting to fade. Continue to watch. Scratches to scalp bleeding throughout the night. Tylenol at bedtime to promote rest. VSS on room air, afebrile. Call light in reach. Follow up:Mod I during day. ACHS w/ SS. Bleeding from multiple tiny scatches and injection sights.
--- NOTE | 2017-02-07 11:46 | NUR ---
D: TR progress note for 02/07/17. I: Pt seen for 2 units at 1100 in group session for education on safety when around pets/animals, functional transfers, leisure education and coping strategies. R: Pt seen for functional skills building working on relaxation techniques, stress/pain management, and continued education on coping skills using animals during Animal Assisted Therapy plus increase safety awareness when around pets. Pt mod I with mobility and transfers in room with good safety awareness with managing walker and hand placement. Pt completed functional communication skills independently which included personal introduction self and sharing information about own dog. Pt was mod I when petting and interacting with animals/volunteers during session utilizing BUE with good safety awareness. Education done on safety with ambulation/mobility in homes when around animals, safety with possibility of poor skin integrity and utilizing pets to assist with coping and stress/pain management when opportunity available. P: Will continue to see to address goals and plan of care.
--- NOTE | 2017-02-07 14:14 | NUR ---
Significant Event:UP AD LISA IN ROOM. ALERT AND ORIENTED X3. VITALS STABLE ON ROOM AIR. COOPERATIVE WITH CARES. ACHS ACCUCHECKS, WAS 132 AND 225 TODAY. INSULIN TO THIGHS DUE TO BRUISES IN ABDOMEN. REFUSED LOVENOX DUE TO BRUISES AND BLEEDING TO ABDOMEN, AWARE. SCRATCHES TO HEAD, BANDAID APPLIED. FEEDS SELF WELL. PILLS WHOLE WITH WATER. DENIES PAIN. CONTINENT OF BOWEL AND BLADDER.HOME SUNDAY. Follow up:
--- NOTE | 2017-02-08 02:34 | NUR ---
Significant Event: a/o x3. takes meds whole with water. accucheck at hs 186, recieved 2 units of novol per ss. had tylenol 650 mg at 2109 for general disocmfort. numbness and tingling to bilat. lower extremities due to neuropathy. up mod I in room, except during night. had bm today. home sunday. Follow up:
[2017-02-08] MEDS ORDERED: FISH OIL 1,0001 EACH PO (10:00)
[2017-02-08] MEDS ORDERED: PROTONIX20 MG PO (10:01)
[2017-02-08] MEDS ORDERED: FLORASTOR250 MG PO (10:02)
[2017-02-08] MEDS ORDERED: HYTRIN **IA 9/2 MG PO (10:04)
--- NOTE | 2017-02-08 15:35 | NUR ---
Significant Event:PATIENT ALERT AND ORIENTED THIS SHIFT. VSS. TRANSFERS INDEPENDANTLY IN ROOM. SBA IN HALLWAYS. TOLERATING THERAPY WELL. ACCU CHECK DID NOT REQUIRE ANY SLIDING SCALE THIS AM. AT LUNCH HE RECEIVED 6 UNITS FOR A 267 BLOOD SUGAR. HAS DENIED PAIN. REFUSED HIS LOVENOX AND COLACE THIS AM. NO OTHER COMPLAINTS. Follow up:
--- NOTE | 2017-02-09 04:55 | NUR ---
Significant Event: PATIENT IS ALERT AND ORIENTATED. AMBULATES INDEPENDENTLY WITH STAFF STANDING BY. 4 UNITS OF INSULIN GIVEN FOR 221 BLOOD SUGAR VSS WNL. ON RA. LOWER ABDOMEN IS BRUISED AND PURPLE IN COLOR. PLAN IS TO BE DISCHARGED IN AM. Follow up:
--- NOTE | 2017-02-09 12:51 | NUR ---
Significant Event: Patient alert and oriented. Up ad james. Accuchecks with s/s insulin. No complaints of pain. To discharge home today with . Follow up:
--- NOTE | 2017-02-09 14:20 | NUR ---
D: Candy Polisher Team Conference Follow up for 02/06/17 and Discharge Note for 02/09/17 I: Input from patient/family R: Met with: patient, family per telephone call, Mariia DuarteW Discussed rehab plan, patient progress, discharge plan and estimated length of stay of d/c planned on 02/09/17 with outpatient therapy. Patient/Family Preference: In agreement. Anticipated discharge disposition: home with . Education completed: Education was completed with patient and regarding length of stay, progress in therapy and d/c plan. Assessment/Recommendation: team recommends d/c on Sunday. P: Case Coordination: Brayden is a 81 year old man from [place], [place] admitted after a stroke. He has good family support. Plan is to d/c on 02/09/17 with outpatient therapy. No other needs idenitified. Will call patient to see how he is doing post discharge.
== END 2017-02-09 10:30 | disposition disaster alternative care site (69) | DRG 92 ==
LOC: GIRP 10:43
PROVIDERS: ADMIT Physical Medicine & Rehabilitation
DX: R26.81 Unsteadiness on feet (principal); I69.351 Hemiplegia and hemiparesis following cerebral infarction affecting right dominant side; E11.22 Type 2 diabetes mellitus with diabetic chronic kidney disease; E11.65 Type 2 diabetes mellitus with hyperglycemia; Z74.1 Need for assistance with personal care; I25.10 Atherosclerotic heart disease of native coronary artery without angina pectoris; Z95.5 Presence of coronary angioplasty implant and graft; N40.0 Benign prostatic hyperplasia without lower urinary tract symptoms; M19.90 Unspecified osteoarthritis, unspecified site; E78.5 Hyperlipidemia, unspecified; I12.9 Hypertensive chronic kidney disease with stage 1 through stage 4 chronic kidney disease, or unspecified chronic kidney disease; N18.3 Chronic kidney disease, stage 3 (moderate); Z79.4 Long term (current) use of insulin; Z91.81 History of falling; Z79.82 Long term (current) use of aspirin; D63.1 Anemia in chronic kidney disease; G47.33 Obstructive sleep apnea (adult) (pediatric); Z53.20 Procedure and treatment not carried out because of patient's decision for unspecified reasons
CPT/HCPCS: J1650